=== PATIENT | male | born 1985 | race Caucasian/White ===

== ENCOUNTER 2016-04-27 20:55 | Emergency (ER) | payer OTHER ==
[2016-04-27 21:01] VITALS: PULSE 58; TEMP 96.8
--- NOTE | 2016-04-27 21:17 | CPEKG ---
Heart Rate: 51 RR Interval: 1176 P-R Interval: 188 QRSD Interval: 92 QT Interval: 408 QTC Interval: 376 P [place]: 47 QRS [place]: 48 T Wave [place]: 42 EKG Severity - NORMAL ECG - EKG Impression: SINUS RHYTHM Electronically Signed By: Mushtaq Sanchez 27-Apr-2016 22:43:33
--- NOTE | 2016-04-27 21:30 | EDPHY ---
H & P Stated Complaint: pleuritic chest pain since yesterday, worse today Time Seen by Provider: 04/27/16 21:14 HPI/ROS: Chief complaint: Chest pain HPI: 30-year-old male presenting with 2 days of constant chest pain which has been worsening over the course of today. Pain was initially about a 6/10 in his left chest. Today's gotten up to about an 8 on 10. It is worse with deep inspiration. He is on any cough. Some mild shortness of breath. Does not have any dyspnea on exertion. Does not a past medical history. Does not have any family history of coronary disease in the first-degree relatives. No fevers or chills. No cough. No nausea or vomiting. Pain is a dull pain. There are no aggravating or alleviating factors other than deep breath. It is not positional. ROS: 10 point Review of Systems is negative except as noted in the HPI. Past medical history: None Medications none Allergies: None Social history: Does not smoke, drinks rare alcohol, uses occasional marijuana which he ingests Physical exam: Gen: Awake, Alert, No Distress HEENT: Nose: no rhinorrhea Eyes: PERRLA, EOMI Mouth: Moist mucosa Neck: Supple, no JVD Chest: Reproducible chest pain in his left upper pectoral muscle below the clavicle reproducing his presenting complaint, lungs clear to auscultation Heart: S1, S2 normal, no murmur Abd: Soft, non-tender, no guarding Back: no CVA tenderness, no midline tenderness Ext: no edema, non-tender Skin: no rash Neuro: CN II-XII intact, Sensation grossly intact, Strength 5/5 in bilateral upper and lower extremities - Personal History Current Tetanus/Diphtheria Vaccine: Unsure Current Tetanus Diphtheria and Acellular Pertussis (TDAP): Unsure - Medical/Surgical History Hx Asthma: No Hx Chronic Respiratory Disease: No Hx Diabetes: No Hx Cardiac Disease: No Hx Renal Disease: No Hx Cirrhosis: No Hx Alcoholism: No Hx HIV/AIDS: No Hx Splenectomy or Spleen Trauma: No Other PMH: childhood asthma. allergies - Social History Smoking Status: Never smoked Constitutional: Initial Vital Signs Temperature (C) 36.0 C 04/27/16 20:58 Heart Rate 58 L 04/27/16 20:58 Respiratory Rate 16 04/27/16 20:58 Blood Pressure 129/58 H 04/27/16 20:58 O2 Sat (%) 96 04/27/16 20:58 O2 Delivery Mode Room Air Allergies/Adverse Reactions: No Known Allergies Allergy (Unverified 04/27/16 20:58) Home Medications: Medication Instructions Recorded NK [No Known Home Meds] 04/27/16 Medical Decision Making - Diagnostics EKG Interpretation: EC: A sinus rhythm with a rate of 51. Normal axis, normal intervals, no acute ST or T-wave changes. Impression: Normal ECG Imaging: Chest x-ray Impression: Minimal left basilar atelectasis. Otherwise normal. Dictated By: Frandy aPnda MD ED Course/Re-evaluation: ECG, chest x-ray, troponin, D-dimer all normal. Patient has reproducible chest wall pain. No evidence of acute cardio or pulmonary process at this time. Will discharge with follow-up with primary care as an outpatient, return for worsening. Patient has had persistent pain for the last 2 days. With a negative troponin now this effectively rules out acute coronary syndrome. - Data Points Laboratory Results: Laboratory Results 04/27/16 21:30 04/27/16 21:30 04/27/16 04/27/16 04/27/16 21:30 21:30 21:30 WBC 8.37 10^3/uL 10^3/uL (3.80-9.50) RBC 5.36 10^6/uL 10^6/uL (4.40-6.38) Hgb 15.6 g/dL g/dL (13.7-17.5) Hct 45.7 % % (40.0-51.0) MCV 85.3 fL fL (81.5-99.8) MCH 29.1 pg pg (27.9-34.1) MCHC 34.1 g/dL g/dL (32.4-36.7) RDW 12.5 % % (11.5-15.2) Plt Count 240 10^3/uL 10^3/uL (150-400) MPV 10.5 fL fL (8.7-11.7) Neut % (Auto) 57.1 % % (39.3-74.2) Lymph % (Auto) 31.7 % % (15.0-45.0) Eddy % (Auto) 6.2 % % (4.5-13.0) Eos % (Auto) 4.2 % % (0.6-7.6) Baso % (Auto) 0.6 % % (0.3-1.7) Nucleat RBC Rel Count 0.0 % % (0.0-0.2) Absolute Neuts (auto) 4.78 10^3/uL 10^3/uL (1.70-6.50) Absolute Lymphs (auto) 2.65 10^3/uL 10^3/uL (1.00-3.00) Absolute Monos (auto) 0.52 10^3/uL 10^3/uL (0.30-0.80) Absolute Eos (auto) 0.35 10^3/uL 10^3/uL (0.03-0.40) Absolute Basos (auto) 0.05 10^3/uL 10^3/uL (0.02-0.10) Absolute Nucleated RBC 0.00 10^3/uL 10^3/uL (0-0.01) Immature Gran % 0.2 % % (0.0-1.1) Immature Gran # 0.02 10^3/uL 10^3/uL (0.00-0.10) D-Dimer < 0.27 ug/mLFEU ug/mLFEU (0.00-0.50) Sodium 140 mEq/L mEq/L (134-144) Potassium 4.0 mEq/L mEq/L (3.5-5.2) Chloride 102 mEq/L mEq/L (97-110) Carbon Dioxide 27 mEq/l mEq/l (22-31) Anion Gap 11 mEq/L mEq/L (8-16) BUN 13 mg/dL mg/dL (7-23) Creatinine 0.7 mg/dL mg/dL (0.7-1.3) Estimated GFR > 60 Glucose 88 mg/dL mg/dL (70-100) Calcium 10.3 mg/dL mg/dL (8.5-10.4) Troponin I < 0.012 ng/mL ng/mL (0-0.034) Departure - Departure Disposition: Home, Routine, Self-Care Clinical Impression: Atypical chest pain Condition: Good Instructions: Chest Pain (ED) Additional Instructions: Follow up with primary care doctor in 2 days if symptoms are not improving. He may take ibuprofen and acetaminophen as needed for pain. Return to the emergency depart for increasing pain, fevers, chills, shortness of breath, nausea, vomiting, or any other concerns. Referrals: NONE *PRIMARY CARE P,. [Primary Care Provider] - As per Instructions Lul Breaux MD [Medical Doctor] - As per Instructions
[2016-04-27 21:39] LABS: % IMMATURE GRANULYOCYTES 0.2 % (0.0-1.1); ABSOLUTE IMMATURE GRANULOCYTES 0.02 10^3/uL (0.00-0.10); ADD DIFF? NO; ADD MORPH? NO; ADD SCAN? NO; ATYPICAL LYMPHOCYTE FLAG 20 (0-99); FRAGMENT RBC FLAG 0 (0-99); HEMATOCRIT 45.7 % (40.0-51.0); HEMOGLOBIN 15.6 g/dL (13.7-17.5); LEFT SHIFT FLG 0 (0-99); LIPEMIA HEMOLYSIS FLAG 90 (0-99); MEAN CELL HEMOGLOBIN 29.1 pg (27.9-34.1); MEAN CELL HEMOGLOBIN CONCENTR. 34.1 g/dL (32.4-36.7); MEAN CELL VOLUME 85.3 fL (81.5-99.8); MEAN PLATELET VOLUME 10.5 fL (8.7-11.7); PLATELET CLUMPS FLAG 10 (0-99); PLATELET COUNT 240 10^3/uL (150-400); RED BLOOD CELL COUNT 5.36 10^6/uL (4.40-6.38); RED CELL DISTRIBUTION WIDTH 12.5 % (11.5-15.2)
[2016-04-27 21:52] LABS: ANION GAP 11 mEq/L (8-16); CALCIUM 10.3 mg/dL (8.5-10.4); CARBON DIOXIDE 27 mEq/l (22-31); CHLORIDE 102 mEq/L (97-110); CREATININE 0.7 mg/dL (0.7-1.3); GLOMERULAR FILTRATION RATE > 60; GLUCOSE 88 mg/dL (70-100); SODIUM 140 mEq/L (134-144)
[2016-04-27 22:04] LABS: TROPONIN I < 0.012 ng/mL (0-0.034)
[2016-04-27 22:46] VITALS: BP 104/62; RESP 12; O2SAT 97
== END 2016-04-27 22:43 | disposition home or self-care (01) ==
DX: R07.89 Other chest pain (principal)